=== PATIENT | female | born 1950 | race Caucasian/White ===

== ENCOUNTER 2017-04-29 21:03 | Inpatient (IN) | payer MEDICARE, OTHER ==
[~2017-04-29] VITALS: Ht 170.2 cm; Wt 75.8 kg
[2017-04-29 21:18] VITALS: BP 155/67; PULSE 73; RESP 16; TEMP 97.8; O2SAT 98
--- NOTE | 2017-04-29 22:01 | PD ---
HPI Chief Complaint: Psychiatric Symptoms Time Seen by Provider: 21:48 Travel History International Travel<30 days: No Contact w/Intl Traveler<30days: No Traveled to known affect area: No History of Present Illness HPI This is a 67-year-old female who presents under exparte for psychiatric evaluation. According to her paperwork her family members have been concerned regards to her behavior lately. They're concerned that she has been having difficulty with memory, and acting paranoid and has been suffering from mood swings. They concerned that she may have dementia as well as a underlying psychiatric condition. She has refused follow-up with a physician as an outpatient and thus they had her placed under exparte. The patient disputes the information contained in the exparte. She believes that her family is trying to take her house from her. She has no medical complaints at this time. [facility] Social History Tobacco Use: No Allergies-Medications (Allergen,Severity, Reaction): Coded Allergies: penicillin G (Verified Allergy, Severe, Cardiac Arrest, 04/29/17) Sulfa (Sulfonamide Antibiotics) (Verified Allergy, Unknown, 04/29/17) codeine (Verified Allergy, Unknown, 04/29/17) Reported Meds & Prescriptions Reported Meds & Active Scripts Active No Active Prescriptions or Reported Medications Review of Systems Except as stated in HPI: all other systems reviewed are Neg Physical Exam Narrative GENERAL: Well-developed well-nourished female in no acute distress. Alert to person, place. Does not remember the year. SKIN: Warm and dry. HEAD: Atraumatic. Normocephalic. EYES: Pupils equal and round. No scleral icterus. No injection or drainage. ENT: No nasal bleeding or discharge. Mucous membranes pink and moist. NECK: Trachea midline. No JVD. CARDIOVASCULAR: Regular rate and rhythm. No murmur appreciated. RESPIRATORY: No accessory muscle use. Clear to auscultation. Breath sounds equal bilaterally. GASTROINTESTINAL: Abdomen soft, non-tender, nondistended. Hepatic and splenic margins not palpable. MUSCULOSKELETAL: No obvious deformities. No clubbing. No cyanosis. No edema. NEUROLOGICAL: Awake and alert. No obvious cranial nerve deficits. Motor grossly within normal limits. Normal speech. PSYCHIATRIC: Appropriate mood and affect Data Data Last Documented VS Vital Signs Date Time Temp Pulse Resp B/P (MAP) Pulse Ox O2 Delivery O2 Flow Rate FiO2 04/29/17 23:52 82 18 155/70 (98) 98 Room Air 04/29/17 21:18 97.8 Orders Orders Complete Blood Count With Diff (04/29/17 21:58) Comprehensive Metabolic Panel (04/29/17 21:58) Psych Screen (04/29/17 21:58) Drug Screen, Random Urine (04/29/17 21:58) Alcohol (Ethanol) (04/29/17 21:58) Urinalysis - C+S If Indicated (04/29/17 22:40) Labs Laboratory Tests Test 04/29/17 22:05 White Blood Count 7.4 TH/MM3 Red Blood Count 4.17 MIL/MM3 Hemoglobin 13.5 GM/DL Hematocrit 40.6 % Mean Corpuscular Volume 97.4 FL Mean Corpuscular Hemoglobin 32.3 PG Mean Corpuscular Hemoglobin Concent 33.2 % Red Cell Distribution Width 13.1 % Platelet Count 186 TH/MM3 Mean Platelet Volume 9.7 FL Neutrophils (%) (Auto) 65.5 % Lymphocytes (%) (Auto) 20.3 % Monocytes (%) (Auto) 9.6 % Eosinophils (%) (Auto) 3.7 % Basophils (%) (Auto) 0.9 % Neutrophils # (Auto) 4.8 TH/MM3 Lymphocytes # (Auto) 1.5 TH/MM3 Monocytes # (Auto) 0.7 TH/MM3 Eosinophils # (Auto) 0.3 TH/MM3 Basophils # (Auto) 0.1 TH/MM3 CBC Comment DIFF FINAL Differential Comment Urine Color LIGHT-YELLOW Urine Turbidity CLEAR Urine pH 6.5 Urine Specific [place] 1.013 Urine Protein NEG mg/dL Urine Glucose (UA) NEG mg/dL Urine Ketones NEG mg/dL Urine Occult Blood NEG Urine Nitrite NEG Urine Bilirubin NEG Urine Urobilinogen LESS THAN 2.0 MG/DL Urine Leukocyte Esterase TRACE Urine WBC 2 /hpf Urine Squamous Epithelial Cells <1 /hpf Urine Bacteria RARE /hpf Microscopic Urinalysis Comment CULT NOT INDICATED Blood Urea Nitrogen 19 MG/DL Creatinine 0.94 MG/DL Random Glucose 99 MG/DL Total Protein 7.7 GM/DL Albumin 3.8 GM/DL Calcium Level 8.9 MG/DL Alkaline Phosphatase 84 U/L Aspartate Amino Transf (AST/SGOT) 32 U/L Alanine Aminotransferase (ALT/SGPT) 27 U/L Total Bilirubin 0.6 MG/DL Sodium Level 140 MEQ/L Potassium Level 4.4 MEQ/L Chloride Level 107 MEQ/L Carbon Dioxide Level 28.3 MEQ/L Anion Gap 5 MEQ/L Estimat Glomerular Filtration Rate 59 ML/MIN Urine Opiates Screen NEG Urine Barbiturates Screen NEG Urine Amphetamines Screen NEG Urine Benzodiazepines Screen NEG Urine Cocaine Screen NEG Urine Cannabinoids Screen NEG Ethyl Alcohol Level LESS THAN 3 MG/DL MDM Medical Decision Making Medical Screen Exam Complete: Yes Emergency Medical Condition: Yes Medical Record Reviewed: Yes Differential Diagnosis Dementia, bipolar disorder, schizophrenia, schizoaffective disorder, acute psychosis, substance induced mood disorder Narrative Course 67-year-old female presents under exparte for psychiatric evaluation. Mental health screening discussed with the patient. Psychiatric screen ordered. The patient's lab work has been reviewed. She is medically cleared for psychiatric disposition. Diagnosis Primary Impression: Medical clearance for psychiatric admission Scripts No Active Prescriptions or Reported Meds Trae Stewart Apr 29, 2017 22:01
[2017-04-29 22:22] LABS: AUTOMATED NEUTROPHIL # 4.8 TH/MM3 (1.8-7.7); BASOPHIL # 0.1 TH/MM3 (0-0.2); BASOPHIL % 0.9 % (0.0-2.0); EOSINOPHIL # 0.3 TH/MM3 (0-0.4); EOSINOPHIL % 3.7 % (0.0-4.0); HEMATOCRIT 40.6 % (35.0-46.0); HEMO FLAGS DIFF FINAL; LYMPH % 20.3 % (9.0-44.0); LYMPHOCYTE # 1.5 TH/MM3 (1.0-4.8); MEAN CELL VOLUME 97.4 FL (80.0-100.0); MEAN CORPUSCULAR HEMOGLOBIN 32.3 PG (27.0-34.0); MEAN CORPUSCULAR HGB CONC 33.2 % (32.0-36.0); MONO % 9.6 % (0.0-8.0); NEUT % 65.5 % (16.0-70.0); PLATELET COUNT 186 TH/MM3 (150-450); RED BLOOD COUNT 4.17 MIL/MM3 (4.00-5.30); RED CELL DISTRIBUTION WIDTH 13.1 % (11.6-17.2); WHITE BLOOD COUNT 7.4 TH/MM3 (4.0-11.0)
[2017-04-29 22:35] LABS: ALT (GPT) 27 U/L (10-53); ANION GAP 5 MEQ/L (5-15); AST (GOT) 32 U/L (15-37); BICARBONATE 28.3 MEQ/L (21.0-32.0); BLOOD UREA NITROGEN 19 MG/DL (7-18); CHLORIDE 107 MEQ/L (98-107); GLOMERULAR FILTRATION RATE 59 ML/MIN (>89); POTASSIUM 4.4 MEQ/L (3.5-5.1); SODIUM (NA) 140 MEQ/L (136-145)
[2017-04-29 22:37] LABS: ALKALINE PHOSPHATASE 84 U/L (45-117); TOTAL BILIRUBIN ADULT 0.6 MG/DL (0.2-1.0)
[2017-04-29 22:42] LABS: ALCOHOL LESS THAN 3 MG/DL (0-5)
[2017-04-29 23:52] VITALS: BP 155/70; PULSE 82; RESP 18; O2SAT 98
[2017-04-29 23:58] LABS: BACTERIA, URINE RARE /hpf; BLOOD, URINE NEG (NEG); COMMENT (UR) CULT NOT INDICATED; CULTURE IF INDICATED CULT NOT INDICATED; GLUCOSE,URINE NEG (NEG); KETONE, URINE NEG (NEG); NITRITE,URINE NEG (NEG); PH, URINE 6.5 (5.0-8.5); SQUAMOUS EPITHELIAL CELL URINE <1 /hpf (0-5); URINE COLOR LIGHT-YELLOW (YELLW/STRAW)
[2017-04-30 03:41] VITALS: BP 111/65; PULSE 77; RESP 17; O2SAT 100
[2017-04-30 06:33] VITALS: BP 104/58; PULSE 68; RESP 17
[2017-04-30 11:21] VITALS: BP 144/86; PULSE 67; RESP 18; O2SAT 100
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
[2017-04-30] MEDS ORDERED: LORazepam 2 MG/ML VIAL IM PRN (13:30)
[2017-04-30] MEDS ORDERED: ACETAMINOPHEN 325 MG TAB PO PRN (13:30)
[2017-04-30] MEDS ORDERED: ALUMINUM/MAGNESIUM/SIMETH 30 ML CUP PO PRN (13:30)
[2017-04-30] MEDS ORDERED: MAGNESIUM HYDROXIDE SUSP 30 ML CUP PO PRN (13:30)
[2017-04-30 16:39] VITALS: BP 144/67; PULSE 55; RESP 16; TEMP 98.1; O2SAT 99
[2017-04-30] MEDS ORDERED: diphenhydrAMINE HCL 25 MG CAP PO ONE (23:45)
[2017-05-01 05:42] VITALS: BP 123/60; PULSE 66; RESP 18; TEMP 98.2; O2SAT 99
[2017-05-01 08:05] LABS: AUTOMATED NEUTROPHIL # 2.2 TH/MM3 (1.8-7.7); EOSINOPHIL # 0.3 TH/MM3 (0-0.4); EOSINOPHIL % 6.8 % (0.0-4.0); HEMATOCRIT 38.5 % (35.0-46.0); HEMO FLAGS DIFF FINAL; LYMPH % 33.9 % (9.0-44.0); LYMPHOCYTE # 1.6 TH/MM3 (1.0-4.8); MEAN CELL VOLUME 97.5 FL (80.0-100.0); MEAN CORPUSCULAR HEMOGLOBIN 32.4 PG (27.0-34.0); MEAN CORPUSCULAR HGB CONC 33.2 % (32.0-36.0); MONO % 12.4 % (0.0-8.0); NEUT % 45.9 % (16.0-70.0); PLATELET COUNT 156 TH/MM3 (150-450); RED BLOOD COUNT 3.95 MIL/MM3 (4.00-5.30); WHITE BLOOD COUNT 4.7 TH/MM3 (4.0-11.0)
[2017-05-01 08:34] LABS: ALT (GPT) 23 U/L (10-53); ANION GAP 3 MEQ/L (5-15); AST (GOT) 29 U/L (15-37); BICARBONATE 30.3 MEQ/L (21.0-32.0); BLOOD UREA NITROGEN 20 MG/DL (7-18); CHLORIDE 110 MEQ/L (98-107); GLOMERULAR FILTRATION RATE 75 ML/MIN (>89); POTASSIUM 5.1 MEQ/L (3.5-5.1); SODIUM (NA) 143 MEQ/L (136-145)
[2017-05-01 09:00] LABS: ALKALINE PHOSPHATASE 73 U/L (45-117); HDL CHOLESTEROL 72.7 MG/DL (40.0-60.0); LDL CHOLESTEROL 106 MG/DL (0-99); TOTAL BILIRUBIN ADULT 0.9 MG/DL (0.2-1.0)
[2017-05-01] MEDS: ASPIRIN EC 81 MG TABEC PO SCH (09:00)
[2017-05-01 11:46] LABS: HEMOGLOBIN A1b 0.6 %; HEMOGLOBIN Ao 86.4 %; HEMOGLOBIN F 0.9 %; HEMOGLOBIN LA1C 1.8 %; HEMOGLOBIN P3 3.4 %
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
--- NOTE | 2017-05-01 13:46 | EKG ---
Date Performed: 05/01/2017 Time Performed: 11:27:51 PTAGE: 67 years EKG: SINUS BRADYCARDIA POSSIBLE ANTERIOR MYOCARDIAL INFARCTION , OF INDETERMINATE AGE ABNORMAL E CG NO PREVIOUS TRACING DOCTOR: Lindsay Mo Interpretating Date/Time 05/01/2017 13:45:33
[2017-05-01] MEDS ORDERED: ASPI81CH7 PO (13:55)
[2017-05-01] MEDS ORDERED: LISI2.5T3 PO (13:55)
[2017-05-01] MEDS ORDERED: LIPI20TA PO (13:55)
[2017-05-01] MEDS ORDERED: NITR1SUB3 SL (13:55)
--- NOTE | 2017-05-01 14:51 | RADRPT ---
EXAM DATE/TIME: 05/01/2017 14:06 [facility] COMPARISON: No previous studies available for comparison. INDICATIONS : Altered mental status for one day. RADIATION DOSE: 32.94 CTDIvol (mGy) MEDICAL HISTORY : Dementia. Hypertension. SURGICAL HISTORY : Cholecystectomy. Hysterectomy. ENCOUNTER: Initial ACUITY: 1 day PAIN SCALE: 2/10 LOCATION: Bilateral cranial TECHNIQUE: Multiple contiguous axial images were obtained of the head. Using automated exposure control and adj ustment of the mA and/or kV according to patient size, radiation dose was kept as low as reasonably a chievable to obtain optimal diagnostic quality images. DICOM format image data is available electro nically for review and comparison. FINDINGS: CEREBRUM: The ventricles are normal for age. No evidence of midline shift, mass lesion, hemorrhage or acute in farction. No extra-axial fluid collections are seen. POSTERIOR FOSSA: The cerebellum and brainstem are intact. The 4th ventricle is midline. The cerebellopontine angle i s unremarkable. EXTRACRANIAL: The visualized portion of the orbits is intact. SKULL: The calvaria is intact. No evidence of skull fracture. CONCLUSION: 1. No acute intracranial abnormality. Diomedes El MD on May 01, 2017 at 14:47 Board Certified Radiologist. This report was verified electronically.
[2017-05-01] MEDS ORDERED: NITROGLYCERIN 0.3 MG SL 100 TABS/BTL SL PRN (16:15)
[2017-05-01 16:40] VITALS: BP 120/69; PULSE 66; RESP 17; TEMP 97; O2SAT 97
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
--- NOTE | 2017-05-01 17:34 | PD.CONS ---
HPI Service [facility] Hospitalists Consult Requested By Psychiatric services Reason for Consult Medical management Primary Care Physician No Primary Care Physician Diagnoses: History of Present Illness Written by Gabi Reyna, acting as scribe for Dr. Wilson on 05/01/17 at 17: 20. This is a 67yo female with a PMHX of CAD s/p OR x 2, one at the first of the year and the other 6 weeks ago treated at [facility], hypothyroidism and prediabetes admitted under ex parte order initiated by her siblings due to patient becoming paranoid, suffering mood swings and having difficulty with memory. Hospitalist services have been consulted for medical management. Patient seen and examined. At present, she is calm and cooperative. She denies any complaints. She denies any dizziness, lightheadedness, palpitations, nausea, vomiting, chest pain or shortness of breath. Patient unsure if she had a heart catheterization while recently admitted with her OR. Discussed with patient obtaining records for my review and patient agreeable. Patient reported she is supposed to be taking thyroid medication but hasn't been because she doesn't think she needs it. Review of Systems Except as stated in HPI: all other systems reviewed are Neg Past Family Social History Allergies: Coded Allergies: penicillin G (Verified Allergy, Severe, Cardiac Arrest, 04/29/17) Sulfa (Sulfonamide Antibiotics) (Verified Allergy, Unknown, 04/29/17) codeine (Verified Allergy, Unknown, 04/29/17) Past Medical History CAD s/p recent OR x 2, one at the first of the year and the second 6 weeks ago treated at [facility] Hypothyroidism, medication noncompliant Prediabetes Past Surgical History Cholecystectomy Abdominal surgery but patient is unable to recall reason for procedure Reported Medications ASA 81mg daily Lipitor 20mg daily Lisinopril 2.5mg daily Active Ordered Medications Current Medications Medications (Trade) Dose Ordered Sig/Akira Route Start Time Stop Time Status Last Admin (Ativan) 1 mg Q6H PRN PO 04/30/17 13:30 (Ativan Inj) 1 mg Q6H PRN IM 04/30/17 13:30 (Tylenol) 650 mg Q4H PRN PO 04/30/17 13:30 05/01/17 06:14 (Milk Of Magnesia Liq) 30 ml DAILY PRN PO 04/30/17 13:30 (Mag-Al Plus Susp Liq) 30 ml Q6H PRN PO 04/30/17 13:30 (Ecotrin Ec) 81 mg DAILY PO 05/01/17 09:00 05/01/17 09:00 (Vitamin D3) 2,000 units DAILY PO 05/02/17 09:00 (Lipitor) 20 mg HS PO 05/01/17 21:00 (Prinivil) 2.5 mg DAILY PO 05/02/17 09:00 (Nitrostat Sl) 0.3 mg Q5M PRN SL 05/01/17 16:15 Family History CAD, both parents, mother with OR in her 40s Social History Patient denies any tobacco use, EtOH consumption or illicit drug use. Physical Exam Vital Signs Vital Signs Date Time Temp Pulse Resp B/P (MAP) Pulse Ox O2 Delivery O2 Flow Rate FiO2 05/01/17 16:40 97.0 66 17 120/69 (86) 97 05/01/17 05:42 98.2 66 18 123/60 (81) 99 Physical Exam GENERAL: This is a well-nourished, well-developed patient, in no apparent distress. Awake and alert. SKIN: No rashes, ecchymoses or lesions. Cool and dry. HEAD: Atraumatic. Normocephalic. No temporal or scalp tenderness. EYES: Pupils equal round and reactive. Extraocular motions intact. No scleral icterus. No injection or drainage. ENT: Nose without bleeding or purulent drainage. Throat without erythema, tonsillar hypertrophy or exudate. Uvula midline. Airway patent. NECK: Trachea midline. No lymphadenopathy. Supple, nontender, no meningeal signs. CARDIOVASCULAR: Regular rate and rhythm without murmurs, gallops, or rubs. RESPIRATORY: Clear to auscultation. Breath sounds equal bilaterally. No wheezes , rales, or rhonchi. GASTROINTESTINAL: Abdomen soft, non-tender, nondistended. No hepato-splenomegaly , or palpable masses. No guarding. MUSCULOSKELETAL: Extremities without clubbing, cyanosis, or edema. No joint tenderness, effusion, or edema noted. No calf tenderness. NEUROLOGICAL: Awake and alert. Able to move all extremities spontaneously. No focal neurologic findings appreciated. Normal speech. Laboratory Laboratory Tests Test 05/01/17 07:39 05/01/17 14:33 White Blood Count 4.7 Red Blood Count 3.95 Hemoglobin 12.8 Hematocrit 38.5 Mean Corpuscular Volume 97.5 Mean Corpuscular Hemoglobin 32.4 Mean Corpuscular Hemoglobin Concent 33.2 Red Cell Distribution Width 13.0 Platelet Count 156 Mean Platelet Volume 9.8 Neutrophils (%) (Auto) 45.9 Lymphocytes (%) (Auto) 33.9 Monocytes (%) (Auto) 12.4 Eosinophils (%) (Auto) 6.8 Basophils (%) (Auto) 1.0 Neutrophils # (Auto) 2.2 Lymphocytes # (Auto) 1.6 Monocytes # (Auto) 0.6 Eosinophils # (Auto) 0.3 Basophils # (Auto) 0.0 CBC Comment DIFF FINAL Differential Comment Blood Urea Nitrogen 20 Creatinine 0.77 Random Glucose 77 Total Protein 6.8 Albumin 3.3 Calcium Level 8.9 Alkaline Phosphatase 73 Aspartate Amino Transf (AST/SGOT) 29 Alanine Aminotransferase (ALT/SGPT) 23 Total Bilirubin 0.9 Sodium Level 143 Potassium Level 5.1 Chloride Level 110 Carbon Dioxide Level 30.3 Anion Gap 3 Estimat Glomerular Filtration Rate 75 Hemoglobin A1c 5.4 Triglycerides Level 46 Cholesterol Level 188 LDL Cholesterol 106 HDL Cholesterol 72.7 Cholesterol/HDL Ratio 2.58 Vitamin B12 Level 723 25-Hydroxy Vitamin D Total 15.4 Thyroid Stimulating Hormone 3rd Gen 18.300 Free Thyroxine 0.63 Result Diagram: 05/01/17 0739 05/01/17 0739 Imaging Last Impressions Head CT 05/01/17 0000 Signed Impressions: Service Date/Time: April 14:06 - CONCLUSION: 1. No acute intracranial abnormality. Diomedes El MD Assessment and Plan Assessment and Plan 67yo female with a PMHX of CAD s/p OR x 2, one at the first of the year and the other 6 weeks ago treated at [facility], hypothyroidism and prediabetes admitted under ex parte order initiated by her siblings due to patient becoming paranoid , suffering mood swings and having difficulty with memory. Dementia with behavioral disturbances - Management per psychiatric team - head CT personally reviewed, unremarkable CAD s/p recent OR x 2 - Orders placed to obtain medical records from [facility] which patient was agreeable to. Contacted by Zbigniew GOFF later in the day who states patient is adamantly refusing to sign for release of records stating "if he wants to know my history he needs to come and ask me". Informed Zbigniew patient was well aware of request for records and was not only agreeable but thanked me for my thoroughness. - ASA daily - resume home dose of Lisinopril 2.5mg daily - Nitro 0.4mg sl prn chest pain - consider starting beta gabriel Hypothyroidism, medication noncompliant - patient states she has been prescribed thyroid medication but she is not taking it because she doesn't feel she needs it - TSH 18.300, Free T4 0.63 - begin low dose Synthroid - patient will need to follow up with PCP to have thyroid studies rechecked in 6-8 weeks "Prediabetic" - blood sugars 77 - obtain HgbA1c Vitamin D deficiency - Vitamin D level 15.4 - begin po vitamin D supplementation - follow up with PCP as outpatient to monitor Dyslipidemia - resume home dose of Lipitor 20mg daily DVT prophylaxis - patient is ambulatory Thank you very kindly for this consultation. Will follow the patient along with you. Discussed Condition With Patient, Zbigniew GOFF This note was transcribed by scribe [Gabi Reyna ]. I, Dr. Sally Wilson personally performed the history, physical exam, and medical decision making; and confirmed the accuracy of the information in the transcribed note. Authenticated by Dr. Wilson on 05/01/17 at 17:48. Gabi Reyna May 01, 2017 17:34 Sally Wilson MD May 01, 2017 20:09
[2017-05-01] MEDS: ATORVASTATIN 20 MG TAB PO SCH (20:58)
[2017-05-01] MEDS: LORazepam 1 MG TAB PO PRN (21:40)
[2017-05-02 05:00] VITALS: BP 102/57; PULSE 66; RESP 16; TEMP 98.1; O2SAT 66
[2017-05-02] MEDS: LEVOTHYROXINE SODIUM 50 MCG TAB PO SCH (06:17)
[2017-05-02] MEDS ORDERED: CHOLECALCIFEROL (VIT D3) 1000 UNIT TAB PO SCH (09:00)
[2017-05-02] MEDS: LISINOPRIL 5 MG TAB PO SCH (09:49)
[2017-05-02] MEDS: ASPIRIN EC 81 MG TABEC PO SCH (09:49)
[2017-05-02] MEDS: CHOLECALCIFEROL (VIT D3) 1000 UNIT TAB PO SCH (09:49)
--- NOTE | 2017-05-02 12:49 | HHI.PYPN ---
Subjective Remarks Patient seen and examined with nurse. Chart reviewed. Case discussed in treatment team. Counselor notes that the patient had initially provided consent to speak with family members to obtain collateral but subsequently rescinded this before the counselor could obtain any collateral. Nurse reports the patient has been no behavioral problem on the unit. OT has performed his assessment and believes the patient's level of function is adequate for outpatient care. On my exam, patient is calm with a somewhat irritable edge, particularly when family members are mentioned. She remains forgetful and repeats herself at times during the interview. She continues to refuse to provide any consents for collateral. No physical complaints. Review of Systems ROS Limitations: Poor Historian Except as stated in HPI: all other systems reviewed are Neg Mental Status Examination Appearance: Appropriate Consciousness: Alert Orientation: Person, Place Motor Activity: Normal gait Speech: Unremarkable Language: Adequate Fund of Knowledge: Inadequate Attention and Concentration: Easily Distracted Memory: Impaired Mood: Appropriate Affect: Euthymic (mildly irritable) Thought Process & Associations: Circumstantial Thought Content: Other (Generally appropriate) Hallucination Type: None Delusion Type: None Suicidal Ideation: No Suicidal Plan: No Suicidal Intention: No Homicidal Ideation: No Homicidal Plan: No Homicidal Intention: No Insight: Poor (presently unclear but suspect poor) Judgment: Poor (presently unclear but suspect poor) Results Labs Labs reviewed. No new labs and RPR and HIV are pending. Vitals/IOs Vital Signs Date Time Temp Pulse Resp B/P (MAP) Pulse Ox O2 Delivery O2 Flow Rate FiO2 05/02/17 05:00 98.1 66 16 102/57 (72) 66 04/29/17 23:52 Room Air Assessment & Plan Problem List: (1) Dementia with behavioral disturbance ICD Codes: F03.91 - Unspecified dementia with behavioral disturbance Assessment & Plan Neuropsychology input noted and appreciated. In light about Dr. Anderson's concerns related to decision-making capacity, particularly regarding medical care, I think it is appropriate at this juncture to change patient's legal status to involuntary secondary to incapacity and request a HCS/GA. I will consult for a second opinion. Hospitalist and OT input appreciated. Counselor to obtain collateral information with consent of HCS. Continue other medications and care as ordered. Justification for Cont. Inpt. Concern for impairment in self-care Discharge Planning To be determined. Given patient's good functional status otherwise, home with home health might be considered, depending on collateral information. Request HC Surrog/Guard Advoc?: Yes Josias Weir MD May 02, 2017 12:49
--- NOTE | 2017-05-02 15:39 | PD.TTN ---
Patient Problems 1. Discharge planning 2. Medication compliance 3. Knowledge deficit 4. Lack of coping skills Progress Toward Goals Provider Present: Dr. Umang Weir Provider Input: 05/02/17 Neuropsych testing has been completed and Dr. Weir will initiate an involunarty petition for this patient. Nay Rainey, will be considered for health care surrogate. Psychiatric Counselors Present: TEOFILO Tavares Psych Therapist Input: 05/02/17 Counselor reported the patient appears confused with impaired memory. She is repetative and believes her family is trying to "control my money." Group Spec/RT/OT/GANN Present: Michael Oconnor OT Group Spec/RT/OT/GANN Input: 05/02/17 Patient presents with poor short-term memory. Discharge Plan Possibly discharge home with home health services. Documentation Scribe: TEOFILO Tavares Date Resolved: May 02, 2017 Kim Pollard May 02, 2017 15:39
[2017-05-02 17:32] VITALS: BP 109/58; PULSE 68; RESP 16; TEMP 98.1; O2SAT 96
[2017-05-02] MEDS: LORazepam 1 MG TAB PO PRN (22:44)
[2017-05-02] MEDS: ATORVASTATIN 20 MG TAB PO SCH (22:44)
[2017-05-03 05:59] VITALS: BP 111/56; PULSE 67; RESP 16; TEMP 98; O2SAT 98
[2017-05-03] MEDS: LEVOTHYROXINE SODIUM 50 MCG TAB PO SCH (06:09)
[2017-05-03] MEDS: CHOLECALCIFEROL (VIT D3) 1000 UNIT TAB PO SCH (08:49)
[2017-05-03] MEDS: ASPIRIN EC 81 MG TABEC PO SCH (08:49)
[2017-05-03] MEDS: LISINOPRIL 5 MG TAB PO SCH (08:50)
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
--- NOTE | 2017-05-03 13:52 | HHI.PYPN ---
Subjective Remarks This is a request for second opinion. Admission note was reviewed and I agree with its contents. Patient was seen and case discussed with nursing. Patient is here for bizarre and labile behavior. Spending money. Insight remains poor and patient minimizes her symptoms. Does appear somewhat internally stimulated. Mental Status Examination Appearance: Appropriate Consciousness: Alert Orientation: Person, Place Motor Activity: Normal gait Speech: Unremarkable Language: Adequate Fund of Knowledge: Inadequate Attention and Concentration: Easily Distracted Memory: Impaired Mood: Appropriate Affect: Other (mildly elevated) Thought Process & Associations: Circumstantial Thought Content: Other (Generally appropriate) Hallucination Type: None Delusion Type: None Suicidal Ideation: No Suicidal Plan: No Suicidal Intention: No Homicidal Ideation: No Homicidal Plan: No Homicidal Intention: No Insight: Poor (presently unclear but suspect poor) Judgment: Poor (presently unclear but suspect poor) Results Vitals/IOs Vital Signs Date Time Temp Pulse Resp B/P (MAP) Pulse Ox O2 Delivery O2 Flow Rate FiO2 05/03/17 05:59 98.0 67 16 111/56 (74) 98 04/29/17 23:52 Room Air Intake and Output 05/03/17 05/03/17 05/04/17 08:00 16:00 00:00 Intake Total 480 ml Balance 480 ml Assessment & Plan Problem List: (1) Dementia with behavioral disturbance ICD Codes: F03.91 - Unspecified dementia with behavioral disturbance Assessment & Plan I agree with the first opinion to continue petition. Criteria include psychosis and bizarre behavior Justification for Cont. Inpt. Patient would decompensate in a less restrictive setting Request HC Surrog/Guard Advoc?: Yes Jayro Lemus DO May 03, 2017 13:52
--- NOTE | 2017-05-03 13:54 | MB ---
cc: CHARLES VELASQUEZ M.D. DATE OF CONSULTATION: 05/03/2017. REASON FOR CONSULTATION: Chest pain. HISTORY OF PRESENT ILLNESS: The patient is a 67-year-old white female, followed in our office by Dr. Lalito Koch, with a history of coronary artery disease, hyperlipidemia, hypertension, mild cardiomyopathy with ejection fraction of 45% to 50% who was admitted to the psychiatric unit recently apparently with behavioral disturbances. The patient repeatedly and adamantly denies any chest pains. She states she had been short of breath for about 24 hours prior to admission. The dyspnea has since resolved. The patient also denies pleurisy, lightheadedness, syncope, near-syncope, palpitations, paroxysmal nocturnal dyspnea, pedal edema. The patient states at the time of her coronary stents she did have chest pains. PAST MEDICAL HISTORY: 1. Hyperlipidemia. 2. Hypertension 3. Coronary artery disease status post drug-eluting stents of the left anterior descending and ramus intermedius 06/24/2014. 4. Mild cardiomyopathy with ejection fraction reportedly 45% to 50% by echo July of 2014 CARDIAC MEDICATIONS AT HOME: None. MEDICATIONS HERE IN THE HOSPITAL: Here in the hospital she has been placed on: 1. Lisinopril 2.5 milligrams p.o. daily. 2. Atorvastatin 20 milligrams p.o. at bedtime. 3. Aspirin 81 milligrams p.o. daily. ALLERGIES: 1. SULFA. 2. CODEINE. 3. PENICILLIN. FAMILY HISTORY: Noncontributory. SOCIAL HISTORY: The patient denies alcohol or tobacco abuse. REVIEW OF SYSTEMS: Review of systems as in the history of present illness otherwise negative or noncontributory. She also denies headache, abdominal pain, melena, dyspepsia, bright red blood per rectum, wheezing, cough. PHYSICAL EXAMINATION: VITAL SIGNS: on physical examination her blood pressure 110/56 with a pulse of 67, respirations 16. GENERAL: She is a well-developed, well-nourished white female in no acute distress. HEAD, EYES, EARS, NOSE, THROAT: On HEENT examination jugular venous pressure is normal. Carotid pulses are 2+ bilaterally and without bruits. CHEST: Examination of the chest reveals clear lung thompson. CARDIAC: On cardiac examination, she has a regular rhythm and rate without S3-S4 or murmur. ABDOMEN: On abdominal examination she has a soft, nontender abdomen. Bowel sounds are present. There is no definite hepatosplenomegaly. EXTREMITIES: Examination of the extremities reveals no cyanosis, clubbing or edema. LABORATORY STUDIES: Laboratory data includes potassium 5.1, BUN 20, creatinine 0.77, total cholesterol 188, LDL 106, HDL 73, triglycerides 46, WBC 4.7, hemoglobin 12.8, platelets 156. EKGS: EKG shows sinus bradycardia, poor R-wave progression. IMPRESSION: Overall stable cardiac status in this 67-year-old white female with a history of coronary artery disease, hypertension, hyperlipidemia, mild cardiomyopathy with ejection fraction of 45% to 50%. The patient adamantly and repeatedly denies any chest pains. There is no definite evidence for congestive heart failure. Her EKG this admission is unremarkable. RECOMMENDATIONS: 1. I have asked the patient to make sure she follows up with Dr. Lalito Koch in [place] in the near future. 2. Continue her current cardiac medications. 3. Will follow up as needed. MD HEYDI Edgar/DANA /12:36 PM /1:39 PM MTDLivia
[2017-05-03 18:27] VITALS: BP 127/58; PULSE 67; RESP 18; TEMP 98.3; O2SAT 97
[2017-05-03] MEDS: ATORVASTATIN 20 MG TAB PO SCH (20:38)
[2017-05-03] MEDS: LORazepam 1 MG TAB PO PRN (23:55)
[2017-05-04 06:00] VITALS: BP 108/60; PULSE 70; RESP 16; TEMP 98; O2SAT 99
[2017-05-04] MEDS: LEVOTHYROXINE SODIUM 50 MCG TAB PO SCH (06:08)
[2017-05-04] MEDS: CHOLECALCIFEROL (VIT D3) 1000 UNIT TAB PO SCH (08:37)
[2017-05-04] MEDS: ASPIRIN EC 81 MG TABEC PO SCH (08:38)
[2017-05-04] MEDS: LISINOPRIL 5 MG TAB PO SCH (08:38)
--- NOTE | 2017-05-04 10:27 | HHI.PYPN ---
Subjective Remarks Patient was seen and case discussed with nursing. Patient is bright, cheerful. Insight remains poor concerning her history and reasons for admission. Continues to be fixated on her brothers and sisters wanting her money. She is alert and oriented 3 though she does not know the president or any of the recent presidents. Behaving well on the unit Mental Status Examination Appearance: Appropriate Consciousness: Alert Orientation: Person, Place, Date/Time Motor Activity: Normal gait Speech: Unremarkable Language: Adequate Fund of Knowledge: Inadequate Attention and Concentration: Easily Distracted Memory: Impaired Mood: Appropriate Affect: Other (mildly elevated) Thought Process & Associations: Disorganized Thought Content: Other (Generally appropriate) Hallucination Type: None Delusion Type: None Suicidal Ideation: No Suicidal Plan: No Suicidal Intention: No Homicidal Ideation: No Homicidal Plan: No Homicidal Intention: No Insight: Poor (presently unclear but suspect poor) Judgment: Poor (presently unclear but suspect poor) Results Vitals/IOs Vital Signs Date Time Temp Pulse Resp B/P (MAP) Pulse Ox O2 Delivery O2 Flow Rate FiO2 05/04/17 06:00 98.0 70 16 108/60 (76) 99 Assessment & Plan Problem List: (1) Dementia with behavioral disturbance ICD Codes: F03.91 - Unspecified dementia with behavioral disturbance Assessment & Plan Continue current treatment plan Justification for Cont. Inpt. Patient will decompensate in a less restrictive setting Request HC Surrog/Guard Advoc?: Yes Jayro Lemus DO May 04, 2017 10:27
[2017-05-04 18:34] VITALS: BP 115/70; PULSE 70; RESP 18; TEMP 98.2; O2SAT 98
[2017-05-04] MEDS: ATORVASTATIN 20 MG TAB PO SCH (21:25)
[2017-05-05] MEDS: LEVOTHYROXINE SODIUM 50 MCG TAB PO SCH (05:30)
[2017-05-05 06:16] VITALS: BP 110/52; PULSE 63; RESP 16; TEMP 98.3; O2SAT 97
[2017-05-05] MEDS: LISINOPRIL 5 MG TAB PO SCH (08:39)
[2017-05-05] MEDS: ASPIRIN EC 81 MG TABEC PO SCH (09:34)
[2017-05-05] MEDS: CHOLECALCIFEROL (VIT D3) 1000 UNIT TAB PO SCH (09:34)
--- NOTE | 2017-05-05 13:32 | HHI.PYPN ---
Subjective Remarks Patient seen and examined with nurse. Chart reviewed. Case discussed with nursing staff who reports patient is pleasant, cooperative and medication compliant. On my examination today, the patient presents as euthymic. No mood symptoms elicited. She denies any suicidal or homicidal ideation. No psychotic symptoms. She does remain suspicious of the motives of her family. She is agreeable to discharge home with home health. Remains a little bit forgetful and repeats herself at times. No side effects from medications. No physical complaints. Review of Systems ROS Limitations: Poor Historian Except as stated in HPI: all other systems reviewed are Neg Mental Status Examination Appearance: Appropriate, Well dressed/well groomed Consciousness: Alert Orientation: Person, Place (at least) Motor Activity: Normal gait Speech: Unremarkable Language: Adequate Fund of Knowledge: Inadequate Attention and Concentration: Adequate Memory: Impaired Mood: Appropriate Affect: Euthymic Thought Process & Associations: Circumstantial Thought Content: Appropriate Hallucination Type: None Delusion Type: None Suicidal Ideation: No Suicidal Plan: No Suicidal Intention: No Homicidal Ideation: No Homicidal Plan: No Homicidal Intention: No Insight: Fair (fair to poor) Judgment: Poor (fair to poor) Results Labs Labs reviewed. No new labs. Vitals/IOs Vital Signs Date Time Temp Pulse Resp B/P (MAP) Pulse Ox O2 Delivery O2 Flow Rate FiO2 05/05/17 06:16 98.3 63 16 110/52 (71) 97 Intake and Output 05/05/17 05/05/17 05/06/17 08:00 16:00 00:00 Intake Total 240 ml Balance 240 ml Assessment & Plan Problem List: (1) Dementia with behavioral disturbance ICD Codes: F03.91 - Unspecified dementia with behavioral disturbance Assessment & Plan No evidence of behavioral disturbance on unit. OT reports that patient remains independent for ADLs and could function in community setting. We will plan for home with [facility]. Continue current medications as ordered. Hospitalist and cardiology input appreciated. I have asked the nurse to request the hospitalist medically clear the patient for possible discharge tomorrow, Friday. Continue other care as ordered. Justification for Cont. Inpt. Final discharge planning Discharge Planning Anticipate discharge home with home health care Friday. Request HC Surrog/Guard Advoc?: Yes Josias Weir MD May 05, 2017 13:32
--- NOTE | 2017-05-05 13:37 | HHI.FF ---
Face to Face Verification Diagnosis: (1) Major neurocognitive disorder due to another medical condition with behavioral disturbance Occupational Therapy Order: Evaluate and Treat Home Health Nursing Order: Signs/symptoms of disease process Nursing assessment with vital signs Labelling Machine Operator Order: To Evaluate: Living conditions/environment, Support services Order: To Provide: Long range planning, Community services I have seen patient Kristy Khan on 05/05/17. My clinical findings support the need for the requested home health care services because: Need for psychosocial assistance Impaired cognition/judgement I certify that my clinical findings support that this patient is homebound because: Impaired cognitive ability/safety Need for psychosocial assistance Josias Weir MD May 05, 2017 13:37
[2017-05-05] MEDS ORDERED: CHOL1000 PO (17:38)
[2017-05-05] MEDS ORDERED: LEVO.05 PO (17:38)
[2017-05-05 17:52] VITALS: BP 121/71; PULSE 70; RESP 16; TEMP 97.3; O2SAT 99
[2017-05-05] MEDS: ATORVASTATIN 20 MG TAB PO SCH (21:40)
[2017-05-06] MEDS: LEVOTHYROXINE SODIUM 50 MCG TAB PO SCH (06:04)
[2017-05-06 06:13] VITALS: BP 134/65; PULSE 63; RESP 18; TEMP 98.1; O2SAT 98
[2017-05-06] MEDS: ASPIRIN EC 81 MG TABEC PO SCH (09:18)
[2017-05-06] MEDS: LISINOPRIL 5 MG TAB PO SCH (09:19)
[2017-05-06] MEDS: CHOLECALCIFEROL (VIT D3) 1000 UNIT TAB PO SCH (09:19)
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
[2017-05-06] MEDS ORDERED: DONE5TAB7 PO (12:53)
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
[2017-05-07] MEDS ORDERED: LISI2.5T3 PO (13:26)
[2017-05-07] MEDS ORDERED: ASPI81CH7 PO (13:26)
[2017-05-07] MEDS ORDERED: NITR1SUB3 SL (13:26)
[2017-05-07] MEDS ORDERED: LIPI20TA PO (13:26)
== END 2017-05-06 15:15 | disposition home health service (06) | DRG 884 ==
LOC: NEPD 21:03 → NEDA 04-30 13:22 → H260 04-30 16:30
PROVIDERS: ADMIT Psychiatry & Neurology Psychiatry; ATTEND Psychiatry & Neurology Psychiatry
DX: F03.91 Unspecified dementia, unspecified severity, with behavioral disturbance (principal); I42.9 Cardiomyopathy, unspecified; I27.20 Pulmonary hypertension, unspecified; F23 Brief psychotic disorder; Z91.14 Patient's other noncompliance with medication regimen; E55.9 Vitamin D deficiency, unspecified; Z87.820 Personal history of traumatic brain injury; R41.89 Other symptoms and signs involving cognitive functions and awareness; E03.9 Hypothyroidism, unspecified; I25.2 Old myocardial infarction; I25.10 Atherosclerotic heart disease of native coronary artery without angina pectoris; Z95.5 Presence of coronary angioplasty implant and graft; E78.5 Hyperlipidemia, unspecified; I10 Essential (primary) hypertension
CPT/HCPCS: 70450; 80053; 80061; 80307; 81001; 82306; 82607; 83036; 84439; 84443; 85025; 86592; 86703; 93005